=== PATIENT | male | born 1970 | race Caucasian/White ===

== ENCOUNTER 2017-03-23 05:30 | Emergency (ER) | payer SELFPAY ==
[~2017-03-23] VITALS: Ht 170.2 cm; Wt 88.5 kg
[2017-03-23 05:54] VITALS: Ht 170.2 cm; Wt 88.5 kg
[2017-03-23 06:25] VITALS: BP 137/83
== END 2017-03-23 06:25 | disposition other institution (70) ==
LOC: ED 05:30
DX: E11.65 Type 2 diabetes mellitus with hyperglycemia (principal)
CPT/HCPCS: 82962

== ENCOUNTER 2017-03-23 05:30 | Emergency (ER) | payer OTHER | END 2017-03-23 06:27 | disposition other institution (70) | LOC: ED 05:30 | DX: Z02.89 Encounter for other administrative examinations (principal) ==